=== PATIENT | male | born 1965 | race Caucasian/White ===

== ENCOUNTER 2022-02-12 10:51 | Emergency (ER) | payer OTHER, SELFPAY ==
[2022-02-12 10:55] VITALS: BP 150/93; PULSE 77; RESP 16; TEMP 36.6; O2SAT 100
--- NOTE | 2022-02-12 10:58 | ED.EYEPROB ---
HPI - Eye Problem General Chief complaint: Eye Problems Stated complaint: Left eye fb Time Seen by Provider: 02/12/22 10:59 Source: patient Mode of arrival: ambulatory Limitations: no limitations History of Present Illness HPI Narrative: Mr. Ndiaye is a 56-year-old male patient presenting to the clinic today with complaints of possible foreign body to the left eye. He reports that he potentially got a piece of wood in it yesterday when he was out cutting trees. States that he rinsed his eye with a garden hose and this did not help much. He reports pain and eye watering with redness to the left eye. Related Data Home Medications Medication Instructions Recorded Confirmed citalopram 40 mg tablet 40 mg PO DAILY 08/30/19 02/12/22 hydrochlorothiazide 25 mg tablet 25 mg PO DAILY 08/30/19 02/12/22 metoprolol tartrate 100 mg tablet 100 mg PO Q12H 08/30/19 02/12/22 pravastatin 20 mg tablet 20 mg PO DAILY 08/30/19 02/12/22 Allergies Allergy/AdvReac Type Severity Reaction Status Date / Time No Known Allergies Allergy Verified 02/12/22 11:03 Review of Systems Review of Systems: Pertinent positives per HPI. Patient denies any fever, chills, rash, headache, visual changes, dizziness, cough, runny nose, sore throat, shortness of breath, chest pain, palpitations, nausea, vomiting, diarrhea, constipation, abdominal pain, or any urinary issues. PMFSH Comments At the time of my signature, I reviewed and agree with the nursing past medical, surgical, social, and family history. There is no relevant family history pertinent to the patient complaint. Exam Narrative: General: Well-developed, well nourished, in no apparent distress Head: Normocephalic, atraumatic Eyes: Pupils equally round and reactive to light bilaterally, EOM intact, left sclera and conjunctive injected, left eye watering, lids normal, Loco lamp exam performed and corneal abrasion noted at 7oclock in the pupil margin. No FB visualized in the left eye. Cardio: Regular rate and rhythm, s1 and s2 normal, no murmur appreciated. Resp: Clear to auscultation bilaterally anteriorly and posteriorly, no rhonchi, rales, wheezing or rubs Course Course Emergency Course: Portions of this record may have been created with voice recognition software. Level of Care: Express Care Visit Vital Signs Vital signs: Vital Signs Temperature 36.6 C 02/12/22 10:55 Pulse Rate 77 02/12/22 10:55 Respiratory Rate 16 02/12/22 10:55 Blood Pressure 150/93 H 02/12/22 10:55 Pulse Oximetry 100 02/12/22 10:55 Oxygen Delivery Room Air 02/12/22 10:55 Temperature 36.6 C 02/12/22 10:55 Pulse Rate 77 02/12/22 10:55 Respiratory Rate 16 02/12/22 10:55 Blood Pressure 150/93 H 02/12/22 10:55 Pulse Oximetry 100 02/12/22 10:55 Oxygen Delivery Room Air 02/12/22 10:55 Vital signs reviewed Procedures Other Procedure Procedure 1: Other Procedure: Topical anesthetic was instilled with good anesthesia using 1gtt of opth anesthetic agent (tetracaine). Fluorescein stain of the left eye was performed with uptake of dye. Corneal abrasion to the left eye at 7 oclock at the pupil margin was noted. NO FB, ulcer or dendritic lesions were noted. Upper lid and lower eye lids were everted and no FB or lesions were noted. NO Liana sign. Normal saline irrigation eye solution was performed and the patient tolerated the procedure well, no adverse reaction or complications. Visual acuity completed. MDM - Eye Problem MDM Narrative Medical decision making narrative: At the time of visit patient is resting comfortably on the exam table. He has left eye watering and redness. Loco lamp exam performed and he has a corneal abrasion at 7:00 of the pupil margin. E-Mycin eye ointment prescribed and supportive measures were discussed with the patient he voiced understanding of discharge instructions and agrees to the treatment plan. Differential Diagnosis Differential diagno
== END 2022-02-12 11:12 | disposition home or self-care (01) ==
PROVIDERS: Emergency Provider Nurse Practitioner Family; PCP Family Medicine
DX: S05.02XA Injury of conjunctiva and corneal abrasion without foreign body, left eye, initial encounter (principal); X58.XXXA Exposure to other specified factors, initial encounter; E78.00 Pure hypercholesterolemia, unspecified; I10 Essential (primary) hypertension; F41.9 Anxiety disorder, unspecified; F32.A Depression, unspecified
CPT/HCPCS: 99213; A9270; G0463